=== PATIENT | female | born 1970 | race Caucasian/White ===

== ENCOUNTER → 2019-06-08 11:43 | Outpatient (CLI) | payer OTHER, SELFPAY ==
[2019-06-08 14:27] LABS: Anion Gap 5 (5-15); BUN 17 mg/dL (7-18); BUN/Creat Ratio 19.6 RATIO (10-20); Calcium,Total 9.5 mg/dL (8.5-10.1); Chloride 109 mmol/L (98-107); Cholesterol 178 mg/dL (200); Creatinine, Serum 0.87 mg/dL (0.55-1.02); EST Glomerular Filtration Rate 74 mL/min (>60); Est Glom Filt Rate - Afr Amer 90 mL/min (>60); Glucose 96 mg/dL (74-106); High Density Lipoprotein 62 mg/dL; Potassium 3.9 mmol/L (3.5-5.1); Sodium Level 140 mmol/L (136-145); Triglycerides 94 mg/dL; Very Low Density Lipoprotein 19 mg/dL (5-40)
== END ==
PROVIDERS: PCP Family Medicine; Referring Provider Family Medicine; Visit Provider Family Medicine
DX: Z13.220 Encounter for screening for lipoid disorders (principal); Z13.1 Encounter for screening for diabetes mellitus
CPT/HCPCS: 36415; 80048; 80061

== ENCOUNTER → 2019-06-16 14:52 | Outpatient (CLI) | payer OTHER, SELFPAY ==
[2019-06-19 13:48] LABS: HPV Reflexed? NOT INDICATED
== END ==
PROVIDERS: PCP Family Medicine; Referring Provider Nurse Practitioner Adult Health; Visit Provider Nurse Practitioner Adult Health
DX: Z01.419 Encounter for gynecological examination (general) (routine) without abnormal findings (principal)
CPT/HCPCS: 88175; G0145

== ENCOUNTER → 2019-07-24 17:22 | Outpatient (CLI) | payer OTHER, SELFPAY | PROVIDERS: Visit Provider Family Medicine | DX: L02.91 Cutaneous abscess, unspecified (principal) | CPT/HCPCS: 87070; 87075; 87077; 87186; 87205 ==

== ENCOUNTER → 2020-03-23 11:16 | Outpatient (CLI) | payer OTHER, SELFPAY | PROVIDERS: Visit Provider Family Medicine | DX: Z20.828 Contact with and (suspected) exposure to other viral communicable diseases (principal) | CPT/HCPCS: 87635; U0003 ==

== ENCOUNTER → 2023-09-12 | Outpatient (CLI) | payer OTHER, SELFPAY ==
[2023-09-12 17:48] LABS: Hematocrit 39.5 % (37-47); Hemoglobin 12.6 g/dL (12.0-15.0); Mean Corp Hgb Conc 31.9 g/dL (32-36); Mean Corpuscular Hgb 28.8 pg (27.0-32.0); Mean Corpuscular Volume 90.4 fL (81-99); Platelet Count 251 K/mm3 (150-450); RBC Distribution Width CV 13.8 % (11.6-14.6); RBC Distribution Width SD 45.9 fl (35.1-43.9); Red Blood Count 4.37 M/mm3 (4.2-5.4); White Blood Count 5.8 K/mm3 (4.4-11.0)
[2023-09-12 18:16] LABS: Vitamin B12 524 pg/mL (211-911); Vitamin D,25 Hydroxy 41.7 ng/mL
[2023-09-12 18:20] LABS: Hemoglobin A1c 5.6 % (3.8-5.6)
[2023-09-12 18:39] LABS: ALB/GLOB Ratio 0.9 RATIO (0.9-2.4); AST(SGOT) 18 U/L (15-37); Alanine Aminotransfer ALT/SGPT 17 U/L (13-56); Albumin, Serum 3.4 g/dL (3.2-5.0); Alkaline Phosphatase 86 U/L (45-117); Anion Gap 4 (5-15); BUN 9 mg/dL (7-18); BUN/Creat Ratio 13.1 RATIO (10-20); Chloride 106 mmol/L (98-107); Cholesterol 199 mg/dL (200); Creatinine, Serum 0.69 mg/dL (0.55-1.02); EST Glomerular Filtration Rate 95 mL/min (>60); Est Glom Filt Rate - Afr Amer 115 mL/min (>60); Globulin 3.7 g/dL (2.2-4.2); Glucose 90 mg/dL (74-106); High Density Lipoprotein 60 mg/dL; Iron 124 ug/dL (50-170); Iron Binding Capacity,Total 586 ug/dL (250-450); PERCENT IRON SATURATION 21.2 % (15.0-55.0); Potassium 3.9 mmol/L (3.5-5.1); Protein, Total 7.1 g/dL (6.4-8.2); Sodium Level 138 mmol/L (136-145); Thyroid Stim Hormone (TSH) 0.99 uIU/mL (0.358-3.74); Triglycerides 159 mg/dL; Very Low Density Lipoprotein 32 mg/dL (5-40)
[2023-09-13 14:26] LABS: Ferritin 6 ng/mL (8-252)
[2023-09-14 12:09] LABS: Insulin Level 12.8 uIU/mL (2.6-24.9)
== END | disposition home or self-care (01) ==
LOC: MTLAB 15:52
PROVIDERS: Referring Provider Physician Assistant; Visit Provider Physician Assistant
DX: R53.83 Other fatigue (principal); Z79.899 Other long term (current) drug therapy; E66.9 Obesity, unspecified
CPT/HCPCS: 36415; 80053; 80061; 82306; 82607; 82728; 82746; 83036; 83525; 83540; 83550; 84443; 85027